=== PATIENT | female | born 1990 | race Caucasian/White ===

== ENCOUNTER 2020-02-29 22:19 | Inpatient (IN) | payer OTHER ==
[~2020-02-29] VITALS: Ht 165.1 cm; Wt 55.6 kg
[2020-02-29] MEDS ORDERED: NALOXONE HCL 1 MG/ML 2 ML SYG IVP ONE (23:00)
[2020-02-29 23:05] LABS: BASOPHILS % (AUTO) 0.4 % (0.0-2.0); EOSINOPHILS % (AUTO) 2.1 % (1.0-6.0); HEMATOCRIT 43.5 % (36-46); HEMOGLOBIN 14.8 g/dL (12.0-16.0); MEAN CORPUSCULAR HEMOGLOBIN 30.8 pg (26.0-34.0); MEAN CORPUSCULAR HGB CONC 34.1 G/dL (31.0-37.0); MEAN CORPUSCULAR VOLUME 90 fL (80-100); MONOCYTES # (AUTO) 0.6 K/uL (0.1-1.0); NEUTROPHILS # (AUTO) 3.7 K/uL (1.8-7.7); NEUTROPHILS % (AUTO) 67.5 % (40.0-70.0); PLATELET COUNT (AUTO) 277 K/uL (150-450); RED BLOOD CELL COUNT(AUTO) 4.81 MIL/uL (4.00-5.20); RED CELL DISTRIBUTION WIDTH 13.4 % (11.5-14.5)
[2020-02-29 23:14] LABS: ANION GAP 8 mmol/L (8-16); CALCIUM, TOTAL 9.6 mg/dL (8.8-10.5); CARBON DIOXIDE 28 mmol/L (22-29); CHLORIDE 99 mmol/L (98-107); CREATININE 0.54 mg/dL (0.60-1.30); GLOMERULAR FILTR. RATE CALC > 60 mL/min (>60); GLUCOSE,RANDOM 84 mg/dL (70-110); POTASSIUM 3.5 mmol/L (3.5-5.1); SODIUM SERUM 135 mmol/L (136-145); UREA NITROGEN, BLOOD 8 mg/dL (7-18)
[2020-02-29 23:21] LABS: ALANINE AMINOTRANSFERASE 50 U/L (12-78); ALBUMIN 3.8 g/dL (3.4-5.0); ALKALINE PHOSPHATASE 50 U/L (46-116); ASPARTATE AMINOTRANSFERASE 39 U/L (15-37); BILIRUBIN,TOTAL 0.7 mg/dL (0.1-1.0)
[2020-02-29 23:47] LABS: APPEARANCE,URINE CLOUDY (CLEAR); GLUCOSE, URINE (UA) NEGATIVE (NEGATIVE); KETONES,URINE >=80 mg/dL (NEGATIVE); LEUKOCYTE ESTERASE ,URINE MODERATE (NEGATIVE); NITRATE,URINE NEGATIVE (NEGATIVE); OCCULT BLOOD,URINE NEGATIVE (NEGATIVE); PROTEIN,URINE POS 1+ (NEGATIVE)
[2020-02-29 23:52] LABS: BILIRUBIN,URINE PRELIM. POSITIVE (NEGATIVE)
[2020-02-29 23:53] LABS: AMPHET/METH SCREEN,URINE POSITIVE (NEGATIVE); BARBITURATE SCREEN, URINE NEGATIVE (NEGATIVE); BENZODIAZEPINES SCREEN,URINE POSITIVE (NEGATIVE); CANNABINOID SCREEN,URINE POSITIVE (NEGATIVE); COCAINE SCREEN,URINE NEGATIVE (NEGATIVE); METHADONE SCREEN, URINE NEGATIVE (NEGATIVE); OPIATE SCREEN,URINE POSITIVE (NEGATIVE)
[2020-02-29 23:56] LABS: BACTERIA,URINE Moderate /HPF (None Seen); RBC,URINE 0-2 /HPF (0-2)
[2020-02-29 23:57] LABS: SQUAMOUS EPITHELIAL CELL,UR Few /LPF (None Seen)
[2020-03-01 00:01] LABS: PHENCYCLIDINE SCREEN,URINE NEGATIVE (NEGATIVE)
[2020-03-01] MEDS ORDERED: 0.9% SODIUM CHLORIDE 10 ML SYRINGE IVP PRN (00:15)
[2020-03-01] MEDS ORDERED: ACETAMINOPHEN 325 MG TABLET PO PRN ×2 (00:15→02:00)
[2020-03-01] MEDS ORDERED: ONDANSETRON HCL 4 MG/2 ML VIAL IVP PRN ×2 (00:15→02:00)
[2020-03-01] MEDS ORDERED: MetroNIDAZOLE 500 MG TABLET PO ONE (00:30)
[2020-03-01 01:22] VITALS: BP 127/67
[2020-03-01] MEDS ORDERED: BISACODYL 10 MG RECTAL RECTAL SUPPOSITORY PR PRN (02:00)
[2020-03-01] MEDS ORDERED: MAGNESIUM HYDROXIDE SUSPENSION 30 ML UDCUP PO PRN (02:00)
[2020-03-01 07:30] VITALS: BP 112/81
[2020-03-01] MEDS: DOCUSATE SODIUM 100 MG CAPSULE PO SCH ×2 (07:57→21:00)
[2020-03-01] MEDS ORDERED: ALPRAZolam 0.25 MG TABLET ONE (11:37)
[2020-03-01] MEDS: ALPRAZolam 0.25 MG TABLET PO PRN (11:41)
[2020-03-01] MEDS: THIAMINE 100 MG TABLET PO SCH (12:03)
[2020-03-01] MEDS: PANTOPRAZOLE SODIUM 40 MG DR TABLET PO SCH (12:03)
[2020-03-01] MEDS: FOLIC ACID 1 MG TABLET PO SCH (12:03)
[2020-03-01] MEDS: MULTIVITAMINS WITH MINERALS, THERAPEUTIC TABLET PO SCH (12:03)
[2020-03-01 12:48] VITALS: BP 107/71
[2020-03-01 21:00] VITALS: BP 107/59
[2020-03-02 05:43] VITALS: BP 106/73
[2020-03-02] MEDS: FOLIC ACID 1 MG TABLET PO SCH (08:12)
[2020-03-02] MEDS: MULTIVITAMINS WITH MINERALS, THERAPEUTIC TABLET PO SCH (08:12)
[2020-03-02] MEDS: PANTOPRAZOLE SODIUM 40 MG DR TABLET PO SCH (08:12)
[2020-03-02] MEDS: DOCUSATE SODIUM 100 MG CAPSULE PO SCH ×2 (08:12→21:00)
[2020-03-02] MEDS: THIAMINE 100 MG TABLET PO SCH (08:13)
[2020-03-02 08:57] LABS: BASOPHILS % (AUTO) 0.3 % (0.0-2.0); EOSINOPHILS % (AUTO) 1.3 % (1.0-6.0); HEMATOCRIT 41.4 % (36-46); HEMOGLOBIN 14.3 g/dL (12.0-16.0); LYMPHOCYTES # (AUTO) 0.8 K/uL (1.0-4.8); LYMPHOCYTES % (AUTO) 13.6 % (22.0-44.0); MEAN CORPUSCULAR HEMOGLOBIN 31.5 pg (26.0-34.0); MEAN CORPUSCULAR HGB CONC 34.5 G/dL (31.0-37.0); MEAN CORPUSCULAR VOLUME 91 fL (80-100); MONOCYTES # (AUTO) 0.4 K/uL (0.1-1.0); MONOCYTES % (AUTO) 6.9 % (2.0-9.0); NEUTROPHILS # (AUTO) 4.5 K/uL (1.8-7.7); NEUTROPHILS % (AUTO) 77.9 % (40.0-70.0); PLATELET COUNT (AUTO) 296 K/uL (150-450); RED BLOOD CELL COUNT(AUTO) 4.54 MIL/uL (4.00-5.20); RED CELL DISTRIBUTION WIDTH 13.6 % (11.5-14.5)
[2020-03-02 09:03] VITALS: BP 104/75
[2020-03-02 09:14] LABS: ALANINE AMINOTRANSFERASE 59 U/L (12-78); ALBUMIN 3.3 g/dL (3.4-5.0); ALKALINE PHOSPHATASE 45 U/L (46-116); ANION GAP 8 mmol/L (8-16); ASPARTATE AMINOTRANSFERASE 38 U/L (15-37); BILIRUBIN,TOTAL 0.3 mg/dL (0.1-1.0); CALCIUM, TOTAL 8.8 mg/dL (8.8-10.5); CARBON DIOXIDE 26 mmol/L (22-29); CHLORIDE 104 mmol/L (98-107); CREATININE 0.84 mg/dL (0.60-1.30); GLOMERULAR FILTR. RATE CALC > 60 mL/min (>60); GLUCOSE,RANDOM 141 mg/dL (70-110); POTASSIUM 3.5 mmol/L (3.5-5.1); SODIUM SERUM 138 mmol/L (136-145); TOTAL PROTEIN, SERUM 6.9 g/dL (6.4-8.2); UREA NITROGEN, BLOOD 6 mg/dL (7-18)
[2020-03-02] MEDS: ALPRAZolam 0.25 MG TABLET PO PRN ×2 (09:25→20:08)
[2020-03-02 16:42] VITALS: BP 100/60
[2020-03-03 04:50] VITALS: BP 111/67
[2020-03-03] MEDS: MULTIVITAMINS WITH MINERALS, THERAPEUTIC TABLET PO SCH (08:21)
[2020-03-03] MEDS: PANTOPRAZOLE SODIUM 40 MG DR TABLET PO SCH (08:22)
[2020-03-03] MEDS: THIAMINE 100 MG TABLET PO SCH (08:22)
[2020-03-03] MEDS: FOLIC ACID 1 MG TABLET PO SCH (08:22)
[2020-03-03] MEDS: ALPRAZolam 0.25 MG TABLET PO PRN (08:23)
[2020-03-03 08:36] VITALS: BP 102/61
[2020-03-03] MEDS: DOCUSATE SODIUM 100 MG CAPSULE PO SCH ×2 (08:42→21:00)
[2020-03-03 12:17] LABS: ALANINE AMINOTRANSFERASE 73 U/L (12-78); ALBUMIN 3.4 g/dL (3.4-5.0); ALKALINE PHOSPHATASE 38 U/L (46-116); ANION GAP 10 mmol/L (8-16); ASPARTATE AMINOTRANSFERASE 49 U/L (15-37); BILIRUBIN,TOTAL 0.2 mg/dL (0.1-1.0); CALCIUM, TOTAL 9.1 mg/dL (8.8-10.5); CARBON DIOXIDE 24 mmol/L (22-29); CHLORIDE 102 mmol/L (98-107); CREATININE 0.57 mg/dL (0.60-1.30); GLOMERULAR FILTR. RATE CALC > 60 mL/min (>60); GLUCOSE,RANDOM 117 mg/dL (70-110); POTASSIUM 3.9 mmol/L (3.5-5.1); SODIUM SERUM 136 mmol/L (136-145); TOTAL PROTEIN, SERUM 7.2 g/dL (6.4-8.2); UREA NITROGEN, BLOOD 13 mg/dL (7-18)
[2020-03-03 15:39] VITALS: BP 109/68
[2020-03-03] MEDS: TraMADol HCL 50 MG TABLET PO PRN (17:04)
[2020-03-03 19:00] VITALS: BP 96/54
[2020-03-04 05:17] VITALS: BP 103/61
[2020-03-04] MEDS: PANTOPRAZOLE SODIUM 40 MG DR TABLET PO SCH (07:56)
[2020-03-04] MEDS: MULTIVITAMINS WITH MINERALS, THERAPEUTIC TABLET PO SCH (07:56)
[2020-03-04] MEDS: THIAMINE 100 MG TABLET PO SCH (07:56)
[2020-03-04] MEDS: DOCUSATE SODIUM 100 MG CAPSULE PO SCH (07:57)
[2020-03-04] MEDS: TraMADol HCL 50 MG TABLET PO PRN ×2 (07:57→15:22)
[2020-03-04] MEDS: FOLIC ACID 1 MG TABLET PO SCH (07:57)
[2020-03-04 08:28] VITALS: BP 101/40
[2020-03-04] MEDS: ALPRAZolam 0.25 MG TABLET PO PRN ×2 (08:47→15:21)
[2020-03-04] MEDS ORDERED: FOLI-130 PO (14:42)
[2020-03-04] MEDS ORDERED: MULT-1239 PO (14:42)
[2020-03-04] MEDS ORDERED: THIA100T80 PO (14:43)
[2020-03-04] MEDS ORDERED: ACET-784 PO (14:44)
[2020-03-04 19:30] VITALS: BP 96/57
== END 2020-03-04 21:05 | DRG 897 ==
LOC: EMS 22:19 → 6S 23:00
PROVIDERS: ADMIT Hospitalist; ATTEND Hospitalist
DX: F11.23 Opioid dependence with withdrawal (principal); F41.1 Generalized anxiety disorder; F32.9 Major depressive disorder, single episode, unspecified; A59.01 Trichomonal vulvovaginitis; F15.10 Other stimulant abuse, uncomplicated; F17.210 Nicotine dependence, cigarettes, uncomplicated
CPT/HCPCS: 84145; 87086; 99291; G0480; J2405